=== PATIENT | male | born 1960 | race Caucasian/White ===

== ENCOUNTER 2023-03-16 08:46 | Day surgery (SDC) | payer BC ==
[2023-03-14 11:37] VITALS: BMI 34.9
[2023-03-16] MEDS ORDERED: Oxymetazoline HCl 0.05% (30 ML BOT) ONE ×3 (10:41→13:08)
[2023-03-16] MEDS ORDERED: EPINEPHrine 1 MG/ML AMP ONE (11:08)
[2023-03-16] MEDS ORDERED: Lidocaine 1% MPF 2 ML VIAL ONE (11:08)
[2023-03-16] MEDS ORDERED: Lidocaine 1% (PF) 30 ML VIAL ONE (11:08)
[2023-03-16] MEDS ORDERED: fentaNYL PF 100 MCG/2 ML SYRINGE ONE (11:36)
[2023-03-16] MEDS ORDERED: PROPOFOL 200 MG/20 ML VIAL ONE (11:41)
[2023-03-16] MEDS ORDERED: Dexamethasone 20 MG/5 ML VIAL ONE (11:41)
[2023-03-16] MEDS ORDERED: Succinylcholine Chloride 100 MG/5 ML SYRINGE FS ONE (11:41)
[2023-03-16] MEDS ORDERED: Ondansetron PF 4 MG/2 ML Vial ONE (11:41)
[2023-03-16] MEDS ORDERED: Albuterol HFA (OR) 200 PUFF INH ONE (11:41)
[2023-03-16] MEDS ORDERED: Lidocaine 1% PF 5 ML VIAL ONE (11:41)
== END 2023-03-16 15:30 | disposition home or self-care (01) ==
LOC: SDC 08:46
PROVIDERS: ATTEND Specialist
PROC: 09TL4ZZ Resection of Nasal Turbinate, Percutaneous Endoscopic Approach (ICD-10-PCS; principal; 2023-03-16)
PROC: 09BM4ZZ Excision of Nasal Septum, Percutaneous Endoscopic Approach (ICD-10-PCS; principal; 2023-03-16)
DX: J34.2 Deviated nasal septum (principal); J34.3 Hypertrophy of nasal turbinates; I10 Essential (primary) hypertension; Z88.0 Allergy status to penicillin; Z79.899 Other long term (current) drug therapy
CPT/HCPCS: 93005; 93010; J0171; J1100; J2001; J2405; J2704